=== PATIENT | female | born 1950 | race Caucasian/White ===

== ENCOUNTER → 2016-10-06 | Day surgery (SDC) | payer OTHER ==
[~2016-10-06] VITALS: Ht 165.1 cm; Wt 67.1 kg
[~2016-10-06] MED LIST: *ONDANSETRON 4 MG VIAL PERIprocedural Use ONLY ONE; *morphine SULFATE 8 MG/ML PERIprocedure ONLY ONE; ACETAMINOPHEN 1000 MG/100 ML VIAL IV SCH; APREPITANT 40 MG CAP PO SCH; BIOT1SUB SL; BUPIVACAINE/EPINEPHRINE 0.25% PF 30 ML VIAL ONE; CYAN5SUB SL; DO NOT ADM ANY ANTICOAGULANT DRUGS XX PRN; FOLI1TAB4 PO; INSULIN HUMAN REGULAR 1,000 UNITS/10 ML VIAL SQ PRN; LACTATED RINGER'S 1000 ML INJ 1,000 ML IV ONE; LACTATED RINGER'S 1000 ML IV SCH; LEVO112T2 PO; METOPROLOL TARTRATE 25 MG TAB PO PRN; MIDAZOLAM HCL 2 MG/2 ML VIAL ONE; MORPHINE SULFATE 4 MG/ML INJ IV PRN; MULTTAB67 PO; NEOSTIGMINE 3 MG/3 ML SYR IV ONE; ONDANSETRON HCL 4 MG/2 ML VIAL IV PRN; ONDANSETRON HCL 4 MG/2 ML VIAL IV PUSH SCH; PROPOFOL 200 MG/20 ML AMP IV ONE; REMOVE OLD SCOPOLAMINE PATCH TD SCH; REST15CA PO; SCOPOLAMINE 1.5 MG PATCH TD ONE; SODIUM CHLORID 0.9% 500 ML IV SCH; VENL75TA PO; ZINC25TA PO; ZOFR4TAB3 SL; ceFAZolin 2 GM PREMIX 50 ML IV SCH; ePHEDrine/NS 25 MG/5 ML SYR IV ONE; fentaNYL CITRATE 250 MCG/5 ML AMP ONE; metroNIDAZOLE 500 MG INJ 100 ML IV SCH; oxyCODONE/ACETAMINOPHEN 5 MG/325 MG TAB PO PRN
[2016-10-06 08:07] VITALS: BP 125/62; PULSE 58; RESP 18; TEMP 98.6; O2SAT 100
[2016-10-06 16:15] VITALS: BP 142/63; PULSE 59; RESP 16; TEMP 97.8; O2SAT 100
--- NOTE | 2016-10-10 21:44 | MP ---
cc: GRETCHEN ESTRELLA DATE OF SURGERY 10/06/2016 DATE OF 1950 PREOPERATIVE DIAGNOSIS Abdominal pain, possible internal hernia. POSTOPERATIVE DIAGNOSIS Internal Guerrero hernia. PROCEDURE Laparoscopic lysis of adhesions with repair of Guerrero hernia. SURGEON Gretchen Estrella MD ANESTHESIA General endotracheal anesthesia. ESTIMATED BLOOD LOSS Scant. FINDINGS Guerrero's defect with adhesions of jejunostomy anastomosis at transverse mesocolon. SPECIMENS None. COMPLICATIONS None. OPERATION The patient was brought to the operating room, placed on operating table in supine position. Bilateral sequential inflation device were placed on lower extremities. General anesthesia instituted. Llamas catheter placed. Antibiotics initiated. The abdomen was prepped and draped sterilely. A point in the periumbilical region anesthetized with 0.25% Marcaine with epinephrine. Skin incision was made, a 5 mm OptiVu port placed under direct vision and pneumoperitoneum created. Under direct vision two 5 mm left upper quadrant and a 5 mm right upper quadrant port was placed. Prior to placement of all ports the skin and peritoneum were anesthetized with 0.25% Marcaine with epinephrine. The abdominal cavity was inspected. Findings as above. Attention focused on adhesions around the transverse mesocolon. These were taken down using the harmonic scalpel. Adhesions of omentum to the abdominal wall were taken down using the harmonic scalpel. The patient's sigmoid colon also appeared to be adhesed to the abdominal wall. This was left in place. Once the adhesions around the transverse mesocolon were , the Jesus limb was reduced into the lower abdomen. The mesenteric defect around the Jesus limb was then closed using 2-0 silk sutures. This was closed around in a simple interrupted manner. Care was taken not to encroach on the Jesus limb during closure. There was no defect identified at the jejunojejunostomy. The bowel was adhesed in this region. At this point the operation was terminated. The CO2 was released. All ports removed. All skin incisions closed with 4-0 Monocryl. The abdominal wall was cleaned and a sterile dressing placed. The patient was awakened and taken to recovery room. MD BIJAN Graham/FELA /8:49 AM /9:36 PM
== END | disposition home or self-care (01) ==
LOC: HSDC 06:55
PROVIDERS: ATTEND Surgery
DX: K45.8 Other specified abdominal hernia without obstruction or gangrene (principal); K66.0 Peritoneal adhesions (postprocedural) (postinfection)
CPT/HCPCS: 00840; 49659; J0131; J2250; J2270; J2405; J2710; J3010; J7120; J8501